=== PATIENT | female | born 1965 | race Caucasian/White ===

== ENCOUNTER 2017-08-13 23:33 | Inpatient (IN) ==
[2017-08-13 23:52] LABS: Basophils % 0.1 % (0.1-2.0); Eosinophils # 0.1 K/mm3 (0.0-0.4); Hematocrit 43.2 % (37.0-47.0); Hemoglobin 13.9 g/dL (12.2-16.2); Lymphocytes # 1.2 K/mm3 (0.7-4.5); Lymphocytes % 13.2 K/mm3 (10-50); Mean Corpuscular HGB Conc 32.2 g/dL (31.8-35.4); Mean Corpuscular Hemoglobin 30.2 pg (27.0-31.2); Mean Corpuscular Volume 93.9 fl (81-99); Mean Platelet Volume 7.3 fl (7.4-10.4); Monocytes # 0.5 K/mm3 (0.1-1.0); Neutrophils # 7.3 K/mm3 (1.8-7.8); Neutrophils % 80.7 % (37.0-80.0); Platelet Count 196 K/mm3 (142-424); Red Cell Distribution Width 13.4 % (11.5-17.5); White Blood Count 9.1 K/mm3 (4.8-10.8)
[2017-08-14 00:10] LABS: Anion Gap 15.5 mEq/L (5-15); Blood Urea Nitrogen 12 mg/dL (7-18); Carbon Dioxide 25 mmol/L (21.0-32.0); Chloride 102 mmol/L (98-107); Glucose 107 mg/dL (74-106); Potassium 3.5 mmoL/L (3.5-5.1); Sodium 139 mmol/L (136-145)
--- NOTE | 2017-08-14 01:06 | Emergency Department Note ---
ED Disposition Clinical Impression: Chest pain Qualifiers: Chest pain type: precordial pain Qualified Code(s): R07.2 - Precordial pain Syncope Qualifiers: Syncope type: unspecified Qualified Code(s): R55 - Syncope and collapse Disposition: Admitted as Observation Condition on Discharge: Good Referrals: Nando Frank MD [Primary Care Provider] - - Critical Care Critical Care Time: No Attestation: On 08/13/17, the high probability of a clinically significant, sudden or life threatening deterioration of the following system(s) required my full and direct attention, intervention and personal management. The time I documented below is in addition to time spent performing reported procedures but includes the following listed in this critical care notation. Medical Decision Making - Medical Records Medical records reviewed: Yes: I reviewed the patient's medical records. - [place] Inquiry Pt receiving controlled substance: No Vital Signs: 08/13/17 23:34 Temperature 98 F Temperature Source Oral Pulse Rate [Right Radial] 79 Respiratory Rate 20 Blood Pressure [Right Arm] 117/61 Blood Pressure Mean [Right Arm] 79 02 Sat by Pulse Oximetry 100 Oxygen Delivery Method Nasal Cannula Oxygen Flow Rate (LPM) 2 - Lab Data Lab results reviewed: Yes: I reviewed the patient's lab results. Lab Results 08/13/17 23:49: WBC 9.1, RBC 4.60, Hgb 13.9, Hct 43.2, MCV 93.9, MCH 30.2, MCHC 32.2, RDW 13.4, Plt Count 196, MPV 7.3 L, Neut % (Auto) 80.7 H, Lymph % (Auto) 13.2, [place] % (Auto) 5.0, Eos % (Auto) 1.0, Baso % (Auto) 0.1, Neut # (Auto) 7.3 , Lymph # (Auto) 1.2, [place] # (Auto) 0.5, Eos # (Auto) 0.1, Baso # (Auto) 0.0 08/13/17 23:49: Sodium 139, Potassium 3.5, Chloride 102, Carbon Dioxide 25, Anion Gap 15.5 H, BUN 12, Creatinine 0.96, Estimated Creat Clear 13, Estimated GFR 61, Est GFR ( Amer) 74, Glucose 107 H, Troponin I < 0.02 Result diagrams: 08/13/17 23:49 08/13/17 23:49 Orders (Tests/Meds): ORDERS Category Date Time Status CT cervical spine wo con Stat Cat Scan 08/13/17 23:[address] head/brain wo con Stat Cat Scan 08/13/17 23:41 Taken XR chest 2V Stat Exams 08/13/17 23:41 Taken 12-lead EKG Request [ECG Request by /Shemar] Stat Y 08/13/17 23:41 Ordered - Radiology Data #1 Image(s): Chest Image Reviewed: Yes I reviewed the patient's radiology image Preliminary Findings: Abnormal (nonspecific) - CT Data CT Scan: Head, C-Spine Time Received: 01:[address] Reviewed: Yes: I have viewed the radiologist's interpretation Preliminary Findings: No Fracture Seen - ECG Data Tracing #1 I reviewed this ECG and interpreted as documented below: Normal Sinus Rhythm: Yes Ischemic changes: non-specific ST-T wave changes - Physician Consults Physician Consulted: vilma Reason -: Admission Chest Pain HPI - General Chief Complaint: Chest Pain Stated Complaint: syncope Time Seen by Provider: 08/14/17 01:03 Mode of Arrival: EMS Source of Information: Patient, Spouse, EMS, Medical Record Limitations: No Limitations Description of Symptoms (Recalled from ER Triage Doc. by RN): syncopal episode at home. pt states she had some heart burn earlier this morning. pt states that tonight she was headed to the restroom and she passed out. pt has left head pain and slight chest heaviness. pt states she has had approx 4 beers tonight. - History of Present Illness HPI narrative: pt with new onset of pain this am which lasted about 3 hrs and then restarted this pm with acute syncopal episode this pm and brought by ems with partial relief with ntg complaint: chest pain indicative of cardiac Onset (ago): hour(s) Duration: intermittent Activity at onset: during rest Pain location: substernal Severity: moderate Quality: aching Pain radiation: none Relieving factors: nitroglycerin Risk Factors for CAD: Hypertension, Family Hx of CAD, Smoking Treatments prior to or on arrival for Cardiac Chest Pain: aspirin, nitroglycerin - DAMION Score Non-Stemi Age of patient: Less than 65 yrs Number of risk factors for CAD: Presence of 3 or more Prior coronary artery stenosis(seen in coronary angiography): Less than 50% ST-Segment deviation on ECG (more than 1 min): Absent Prior aspirin intake: No ASA in the last 7 days Severe anginal chest pain: Two or more episodes in last 24 hours Elevated cardiac markers(CK-MB or troponin): Absent Non-Stemi Risk Score: 2 - Related Data On Oral Contraceptives: No Home Medications Medication Instructions Recorded Confirmed Cetirizine HCl/Pseudoephedrine 1 each PO DAILY 08/13/17 08/13/17 [Zyrtec-D Tablet] Venlafaxine HCl [Effexor XR 75mg 225 mg PO DAILY 08/13/17 08/13/17 capsule] Allergies Allergy/AdvReac Type Severity Reaction Status Date / Time No Known Allergies Allergy Verified 08/13/17 23:40 [facility] History I have reviewed the patient's past medical history: Yes Medical History: Denies:: Cancer, Diabetes Mellitus Type 1, Diabetes Mellitus Type 2, MRSA Amputation: No Fractures: No - Social History Smoking Status: Current every day smoker Alcohol Intake: current Alcohol Intake Frequency:: a few times a week Substance Use Type: marijuana 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 Denies: abdominal pain, black, tarry stools - Genitourinary Female Genitourinary: Denies hematuria - Musculoskeletal Musculoskeletal: Denies joint pain, Denies joint swelling - Integumentary/Breasts Skin/Breast: Denies rash - Neurologic Neurologic: Denies headache(s), Denies seizure-like activity Physical Exam - General General appearance: in no apparent distress - Head Head exam: normocephalic - Eye Eye exam: Present: PERRL, EOMI - ENT ENT exam: Present: mucous membranes moist - Respiratory Respiratory exam: Present: normal lung sounds bilaterally. Absent: respiratory distress - Cardiovascular Cardiovascular exam: Present: regular rate, systolic murmur. Absent: rubs, gallop - Abdominal Exam Abdominal exam: Present: soft. Absent: tenderness - Extremities Exam Extremities exam: Absent: calf tenderness - Neurological Exam Neurological exam: Present: alert, oriented X3, CN II-XII intact - Psychiatric Psychiatric exam: Present: normal affect - Skin Skin exam: Absent: rash
[2017-08-14 07:58] LABS: Basophils % 0.1 % (0.1-2.0); Eosinophils % 0.3 % (0.1-12.0); Hemoglobin 13.6 g/dL (12.2-16.2); Lymphocytes # 0.9 K/mm3 (0.7-4.5); Lymphocytes % 9.7 K/mm3 (10-50); Mean Corpuscular HGB Conc 32.4 g/dL (31.8-35.4); Mean Corpuscular Hemoglobin 30.7 pg (27.0-31.2); Mean Platelet Volume 7.7 fl (7.4-10.4); Monocytes # 0.6 K/mm3 (0.1-1.0); Monocytes % 6.2 % (1.7-9.3); Neutrophils # 7.5 K/mm3 (1.8-7.8); Neutrophils % 83.6 % (37.0-80.0); Platelet Count 195 K/mm3 (142-424); Red Blood Count 4.42 M/mm3 (4.20-5.40); Red Cell Distribution Width 13.3 % (11.5-17.5)
[2017-08-14 08:08] LABS: Anion Gap 11.9 mEq/L (5-15); Blood Urea Nitrogen 11 mg/dL (7-18); Carbon Dioxide 26 mmol/L (21.0-32.0); Chloride 107 mmol/L (98-107); Chol/HDL Ratio 3.3 (1-3.5); Cholesterol 163 mg/dL (140-200); Glucose 119 mg/dL (74-106); HDL Cholesterol 49 mg/dL (29-89); LDL Cholesterol 104 mg/dL (0-130); Potassium 3.9 mmoL/L (3.5-5.1); Sodium 141 mmol/L (136-145); Triglycerides 50 mg/dL (30-200); VLDL Cholesterol 10 mg/dL (0-40)
--- NOTE | 2017-08-14 08:22 | Pharmacy Consult Notes ---
[facility] Pharmacy VTE Monitoring - Patient Demographics Admission date: 08/14/17 Report Date: 08/14/17 Time: 08:22 Allergies/Adverse Reactions: Patient Allergies No Known Allergies Allergy (Verified 08/14/17 01:53) Height: 1.65 m Weight: 88.224 kg Patient Problems: Current Active Problems Chest pain (Acute) Syncope (Acute) - VTE Risk Labs: VTE Related Lab Results Hgb 13.6 g/dL (12.2-16.2) 08/14/17 06:15 Hct 42.0 % (37.0-47.0) 08/14/17 06:15 Plt Count 195 K/mm3 (142-424) 08/14/17 06:15 BUN 11 mg/dL (7-18) 08/14/17 06:15 Creatinine 0.87 mg/dL (0.55-1.02) 08/14/17 06:15 Estimated Creat Clear 105 mL/min (0-300) 08/14/17 06:15 Was VTE Risk Assessment Performed: Yes VTE Score: 1 VTE Risk Level: Very Low Risk - Prophylaxis VTE Prophylaxis Ordered?: Yes Types of VTE Prophylaxis: TEDS Knee High Location of Applied Device: Bilateral Lower Extremeties - VTE Diagnosis Confirmed Treatment or plan recommended: Continue Current Treatment
--- NOTE | 2017-08-14 09:30 | History & Physical Report ---
*Admission Date: 08/14/17 *Chief complaint: Passed out/chest pain *History of present illness: 51 year old female presented to [facility] ER last night after falling at home and hitting her head and left side of her face. Patient states she had some chest pain yesterday morning and took and antacid thinking it may have been due to indigestion. She had several other episodes of pain throughout the day yesterday that were brief in nature and not related to exertion. She states she was laying on her couch watching TV last night and got up to use the restroom and after walking a few feet she passed out and fell to the ground. Her heard her fall and helped her up as she states he told her she was only out for a few seconds. Patient reports no similar previous episodes. She does smoke and has hyperlipidemia and states she had drank four beers last night prior to falling. [facility] History Medical History: Reports:: Anxiety, Hyperlipidemia Denies:: Cancer, Diabetes Mellitus Type 1, Diabetes Mellitus Type 2, MRSA Other Medical History: Reports: Other (allergic rhinitis) Other Surgeries: Yes: Tubal Ligation, Other (vulvectomy, several skin cancer surgeries) Amputation: No Fractures: No - *Social History Educational Level: Completed College Smoking Status: Current every day smoker Tobacco Type: cigarettes # Packs/Day (cigarettes): 1 Alcohol Intake: current Alcohol Intake Frequency:: a few times a week Substance Use Type: marijuana Last Used Substance: just [employer] Occupational Status: employed Housing: house Household Members: spouse - Psychiatric History Expresses thoughts of harming self/others: None Suicide Plan Description: No Plan *Family Hx:: Cancer, Diabetes, Heart Attack Review of Systems - Constitutional Denies chills, Denies fever(s) - Eyes Denies blurry vision - ENT Denies difficulty swallowing - *Cardiovascular Reports chest pain - *Respiratory Denies cough - *Gastrointestinal Denies abdominal pain - *Genitourinary Denies painful urination - *Musculoskeletal Denies joint pain - Integumentary/Breasts Denies rash - *Neurologic Denies dizziness, Denies headache(s) - Hematologic/Lymphatic Denies easy bruising Meds Home Medications Medication Instructions Recorded Confirmed Type Cetirizine HCl/Pseudoephedrine 1 each PO DAILY 08/13/17 08/14/17 History [Zyrtec-D Tablet] Venlafaxine HCl [Effexor XR 75mg 225 mg PO DAILY 08/13/17 08/14/17 History capsule] Rosuvastatin Calcium 5 mg PO DAILY 08/14/17 08/14/17 History Allergies Allergy/AdvReac Type Severity Reaction Status Date / Time No Known Allergies Allergy Verified 08/14/17 01:53 Exam Vital signs and Labs for Last 24 Hours: Temp Pulse Resp BP Pulse Ox 99.1 F 70 18 103/56 91 L 08/14/17 07:22 08/14/17 07:22 08/14/17 07:22 08/14/17 07:22 08/14/17 07:22 Laboratory Results - last 24 hr 08/13/17 23:49: WBC 9.1, RBC 4.60, Hgb 13.9, Hct 43.2, MCV 93.9, MCH 30.2, MCHC 32.2, RDW 13.4, Plt Count 196, MPV 7.3 L, Neut % (Auto) 80.7 H, Lymph % (Auto) 13.2, [place] % (Auto) 5.0, Eos % (Auto) 1.0, Baso % (Auto) 0.1, Neut # (Auto) 7.3 , Lymph # (Auto) 1.2, [place] # (Auto) 0.5, Eos # (Auto) 0.1, Baso # (Auto) 0.0 08/13/17 23:49: Sodium 139, Potassium 3.5, Chloride 102, Carbon Dioxide 25, Anion Gap 15.5 H, BUN 12, Creatinine 0.96, Estimated Creat Clear 13, Estimated GFR 61, Est GFR ( Amer) 74, Glucose 107 H, Troponin I < 0.02 08/14/17 01:50: Troponin I < 0.02 08/14/17 04:30: Troponin I < 0.02 08/14/17 06:15: WBC 9.0, RBC 4.42, Hgb 13.6, Hct 42.0, MCV 95.0, MCH 30.7, MCHC 32.4, RDW 13.3, Plt Count 195, MPV 7.7, Neut % (Auto) 83.6 H, Lymph % (Auto) 9.7 L, [place] % (Auto) 6.2, Eos % (Auto) 0.3, Baso % (Auto) 0.1, Neut # (Auto) 7.5 , Lymph # (Auto) 0.9, [place] # (Auto) 0.6, Eos # (Auto) 0.0, Baso # (Auto) 0.0 08/14/17 06:15: Sodium 141, Potassium 3.9, Chloride 107, Carbon Dioxide 26, Anion Gap 11.9, BUN 11, Creatinine 0.87, Estimated Creat Clear 105, Estimated GFR 68, Est GFR ( Amer) 83, Glucose 119 H, Magnesium 1.7, Troponin I < 0.02, Triglycerides 50, Cholesterol 163, LDL Cholesterol 104, VLDL Cholesterol 10, HDL Cholesterol 49, Cholesterol/HDL Ratio 3.3 I & O for Last 24 hours: Intake & Output 08/11/17 08/12/17 08/13/17 08/14/17 11:59 11:59 11:59 11:59 Intake Total 97 / 97 Output Total 400 / 400 Balance -303 / -303 Weight 194 lb 8 oz - Constitutional no acute distress - *Routine HEENT Exam Eye: Present: PERRL ENT: Present: mucous membranes moist - *Routine Neck Exam Present: supple, full ROM - *Routine Respiratory Exam Present: CTA bilaterally - *Routine Cardiovascular Exam Present: RRR - *Routine Abdominal Exam Present: soft, normoactive bowel sounds. Absent: tenderness - *Routine Extremities Exam Absent: cyanosis, clubbing, edema - *Routine Skin Exam Absent: rash - *Routine Neurological Exam Present: alert, oriented X3, CN II-XII intact, sensory deficit, motor deficit H&P: Result - Labs Labs: Short CBC 08/13/17 08/14/17 Range/Units 23:49 06:15 WBC 9.1 9.0 (4.8-10.8) K/mm3 Hgb 13.9 13.6 (12.2-16.2) g/dL Hct 43.2 42.0 (37.0-47.0) % Plt Count 196 195 (142-424) K/mm3 [place] 08/13/17 08/14/17 23:49 06:15 Sodium 139 141 Potassium 3.5 3.9 Chloride 102 107 Carbon Dioxide 25 26 BUN 12 11 Creatinine 0.96 0.87 Glucose 107 H 119 H Cardiac Enzymes 08/13/17 08/14/17 08/14/17 Range/Units 23:49 01:50 04:30 Troponin I < 0.02 < 0.02 < 0.02 (0.00-0.06) ng/ml 08/14/17 Range/Units 06:15 Troponin I < 0.02 (0.00-0.06) ng/ml - Impressions CT head, C-spine and CXR reports all reviewed, no acute pathology noted. Assessment and Plan (1) Anxiety Current visit: Yes Status: Acute Category: Medical Code(s): F41.9 - Anxiety disorder, unspecified (2) Hyperlipidemia Current visit: Yes Status: Acute Category: Medical Code(s): E78.5 - Hyperlipidemia, unspecified (3) Tobacco use Current visit: Yes Status: Acute Category: Social Hx Code(s): Z72.0 - Tobacco use (4) Chest pain Current visit: Yes Status: Acute Qualifiers: Chest pain type: precordial pain Qualified Code(s): R07.2 - Precordial pain Category: Medical Code(s): R07.9 - Chest pain, unspecified (5) Syncope Current visit: Yes Status: Acute Qualifiers: Syncope type: unspecified Qualified Code(s): R55 - Syncope and collapse Category: Medical Code(s): R55 - Syncope and collapse - Assessment and plan all Dx Assessment and Plan for all problems:: Patient admitted for further evaluation of chest pain and syncope, cardiology consulted.
--- NOTE | 2017-08-15 05:17 | Progress Note ---
Internal Medicine - PN: Subj *Date: 08/15/17 *Time: 06:21 Interval history: Patient had left heart cath yesterday which showed non obstructive coronary disease. She went into a. fib overnight and received a dose of oral Cardizem. Exam Vital signs and Labs for Last 24 Hours: Temp Pulse Resp BP Pulse Ox 97.9 F 85 20 98/60 93 L 08/15/17 04:00 08/15/17 04:00 08/15/17 04:00 08/15/17 04:00 08/15/17 04:00 Laboratory Results - last 24 hr 08/14/17 06:15: WBC 9.0, RBC 4.42, Hgb 13.6, Hct 42.0, MCV 95.0, MCH 30.7, MCHC 32.4, RDW 13.3, Plt Count 195, MPV 7.7, Neut % (Auto) 83.6 H, Lymph % (Auto) 9.7 L, [place] % (Auto) 6.2, Eos % (Auto) 0.3, Baso % (Auto) 0.1, Neut # (Auto) 7.5 , Lymph # (Auto) 0.9, [place] # (Auto) 0.6, Eos # (Auto) 0.0, Baso # (Auto) 0.0 08/14/17 06:15: Sodium 141, Potassium 3.9, Chloride 107, Carbon Dioxide 26, Anion Gap 11.9, BUN 11, Creatinine 0.87, Estimated Creat Clear 105, Estimated GFR 68, Est GFR ( Amer) 83, Glucose 119 H, Magnesium 1.7, Troponin I < 0.02, Triglycerides 50, Cholesterol 163, LDL Cholesterol 104, VLDL Cholesterol 10, HDL Cholesterol 49, Cholesterol/HDL Ratio 3.3 08/14/17 22:30: POC Glucose 92 Vital Signs Temp Pulse Pulse Pulse Resp BP BP 08/15/17 04:00 97.9 F 80 85 20 98/60 08/15/17 02:07 89 08/15/17 00:00 98.1 F 110 H 71 18 115/58 08/14/17 21:33 140 H 08/14/17 21:08 127 H 08/14/17 20:00 90 08/14/17 19:39 98.4 F 69 18 119/60 05/27/18 18:45 63 20 97/63 05/27/18 17:45 63 20 114/66 08/14/17 16:45 69 20 106/70 08/14/17 16:00 60 08/14/17 15:45 69 20 102/63 08/14/17 14:45 65 20 116/65 08/14/17 14:15 78 20 110/63 08/14/17 13:45 68 20 118/73 08/14/17 13:15 73 20 102/62 08/14/17 12:45 67 20 100/65 08/14/17 12:30 93 H 20 94/58 08/14/17 12:15 98.7 F 66 20 110/61 08/14/17 12:00 90 63 16 103/56 08/14/17 11:45 69 16 99/56 08/14/17 11:40 76 16 99/59 08/14/17 11:38 75 76 16 100/60 08/14/17 11:35 75 16 99/53 08/14/17 11:30 76 16 100/60 08/14/17 08:00 80 08/14/17 07:22 99.1 F 70 18 103/56 Pulse Ox 08/15/17 04:00 93 L 08/15/17 02:07 08/15/17 00:00 94 L 08/14/17 21:33 08/14/17 21:08 08/14/17 20:00 08/14/17 19:39 96 08/14/17 18:45 98 08/14/17 17:45 94 L 08/14/17 16:45 97 08/14/17 16:00 08/14/17 15:45 92 L 08/14/17 14:45 97 08/14/17 14:15 92 L 08/14/17 13:45 95 08/14/17 13:15 97 08/14/17 12:45 94 L 08/14/17 12:30 93 L 08/14/17 12:15 90 L 08/14/17 12:00 95 08/14/17 11:45 94 L 08/14/17 11:40 93 L 08/14/17 11:38 92 L 08/14/17 11:35 92 L 08/14/17 11:30 87 L 08/14/17 08:00 96 08/14/17 07:22 91 L Intake and Output 08/14/17 08/15/17 08/15/17 19:59 03:59 11:59 Intake Total 360 / 360 240 / 240 Output Total 600 / 600 600 / 600 Balance -240 / -240 -360 / -360 Intake: Intake, Oral Amount 360 / 360 240 / 240 Output: Output, Urine Amount 600 / 600 600 / 600 Output, Stool Amount 0 / 0 Other: Number of Voids 2 Weight 199 lb 1 oz Patient Weight 08/15/17 11:59 Weight 199 lb 1 oz I & O for Last 24 hours: Intake & Output 08/12/17 08/13/17 08/14/17 08/15/17 11:59 11:59 11:59 11:59 Intake Total 97 / 97 600 / 600 Output Total 400 / 400 1200 / 1200 Balance -303 / -303 -600 / -600 Weight 194 lb 8 oz 199 lb 1 oz - Constitutional no acute distress - *Routine HEENT Exam ENT: Present: mucous membranes moist - *Routine Respiratory Exam Present: CTA bilaterally - *Routine Cardiovascular Exam Present: irregularly irregular (HR 120 now) Assessment and Plan (1) A-fib Current visit: Yes Status: Acute Category: Medical Code(s): I48.91 - Unspecified atrial fibrillation (2) Anxiety Current visit: Yes Status: Acute Category: Medical Code(s): F41.9 - Anxiety disorder, unspecified (3) Hyperlipidemia Current visit: Yes Status: Acute Category: Medical Code(s): E78.5 - Hyperlipidemia, unspecified (4) Tobacco use Current visit: Yes Status: Acute Category: Social Hx Code(s): Z72.0 - Tobacco use (5) Chest pain Current visit: Yes Status: Acute Qualifiers: Chest pain type: precordial pain Qualified Code(s): R07.2 - Precordial pain Category: Medical Code(s): R07.9 - Chest pain, unspecified (6) Syncope Current visit: Yes Status: Acute Qualifiers: Syncope type: unspecified Qualified Code(s): R55 - Syncope and collapse Category: Medical Code(s): R55 - Syncope and collapse - Assessment and plan all Dx Assessment and Plan for all problems:: Will schedule Cardizem, will need to start Xarelto, continue inpatient care/ monitoring.
[2017-08-16 07:07] LABS: Basophils % 0.1 % (0.1-2.0); Eosinophils % 0.8 % (0.1-12.0); Hematocrit 47.4 % (37.0-47.0); Hemoglobin 14.9 g/dL (12.2-16.2); Lymphocytes # 1.1 K/mm3 (0.7-4.5); Lymphocytes % 25.3 K/mm3 (10-50); Mean Corpuscular HGB Conc 31.4 g/dL (31.8-35.4); Mean Corpuscular Hemoglobin 30.1 pg (27.0-31.2); Mean Corpuscular Volume 95.8 fl (81-99); Mean Platelet Volume 7.8 fl (7.4-10.4); Monocytes # 0.3 K/mm3 (0.1-1.0); Monocytes % 5.5 % (1.7-9.3); Neutrophils # 3.1 K/mm3 (1.8-7.8); Neutrophils % 68.4 % (37.0-80.0); Platelet Count 197 K/mm3 (142-424); Red Blood Count 4.95 M/mm3 (4.20-5.40); Red Cell Distribution Width 13.3 % (11.5-17.5); White Blood Count 4.5 K/mm3 (4.8-10.8)
[2017-08-16 07:21] LABS: Anion Gap 10.6 mEq/L (5-15); Potassium 3.6 mmoL/L (3.5-5.1)
--- NOTE | 2017-08-16 07:37 | Carotid Imaging Report ---
"Cerebrovascular Exam Indications: 780.2 Syncope and collapse. IMPRESSIONS 1. The bilateral vertebral arteries are patent with normal antegrade flow. 2. Study suggests less than 20% stenosis involving the right internal carotid artery and the left internal carotid artery. History: Risk factors: Current tobacco use. Hypertension. Carotid duplex study. Complete study and Doppler flow study including spectral analysis, color and vazquez scale imaging. Location: Bedside. Patient status: Inpatient. Tables: Arterial flow: + +--------+--------+ |Location |V sys |V ed | + +--------+--------+ |Right CCA - proximal|77.8cm/s|28.3cm/s| + +--------+--------+ |Right CCA - distal |82.5cm/s|33.8cm/s| + +--------+--------+ |Right ECA |91.9cm/s|--------| + +--------+--------+ |Right ICA - proximal|62.1cm/s|24.4cm/s| + +--------+--------+ |Right ICA - mid |76.2cm/s|30.6cm/s| + +--------+--------+ |Right ICA - distal |68.4cm/s|33cm/s | + +--------+--------+ |Right vertebral |63.6cm/s|--------| + +--------+--------+ |Left CCA - proximal |84.1cm/s|24.4cm/s| + +--------+--------+ |Left CCA - distal |74.6cm/s|31.4cm/s| + +--------+--------+ |Left ECA |91.1cm/s|--------| + +--------+--------+ |Left ICA - proximal |82.5cm/s|29.9cm/s| + +--------+--------+ |Left ICA - mid |69.9cm/s|29.9cm/s| + +--------+--------+ |Left ICA - distal |62.9cm/s|22cm/s | + +--------+--------+ |Left vertebral |60.5cm/s|--------| + +--------+--------+ Velocity ratios: + + + + + + | |Right, V sys|Right, V ed|Left, V sys|Left, V ed| + + + + + + |Max ICA/dist CCA|0.92 |0.98 |1.11 |0.95 | + + + + + + (Report amended ) Electronically signed by: Gustavo Joy [id number]"
--- NOTE | 2017-08-16 07:53 | Progress Note ---
Subjective Date: 08/16/17 Time: 07:50 Principal diagnosis: A. fib, CAD, syncope Interval history: 51 yo WF in bed in NAD. Telemetry shows NSR with paroxysmal A. fib with variable rate. Taking diltiazem 180 mg daily but BP is around 100 mm Hg systolic. No further episodes of syncope and this was the only episode she has ever had without something causing it (sight of blood, discussing something "gross" or related to drinking too much). Exam Vital signs and Labs for Last 24 Hours: Temp Pulse Resp BP Pulse Ox 98.2 F 118 H 20 105/74 97 08/16/17 07:49 08/16/17 07:49 08/16/17 07:49 08/16/17 07:49 08/16/17 07:49 Laboratory Results - last 24 hr 08/16/17 06:14: WBC 4.5 L D, RBC 4.95, Hgb 14.9, Hct 47.4 H, MCV 95.8, MCH 30.1 , MCHC 31.4 L, RDW 13.3, Plt Count 197, MPV 7.8, Neut % (Auto) 68.4, Lymph % ( Auto) 25.3, [place] % (Auto) 5.5, Eos % (Auto) 0.8, Baso % (Auto) 0.1, Neut # (Auto ) 3.1, Lymph # (Auto) 1.1, [place] # (Auto) 0.3, Eos # (Auto) 0.0, Baso # (Auto) 0.0 08/16/17 06:14: Sodium 144, Potassium 3.6, Chloride 108 H, Carbon Dioxide 29, Anion Gap 10.6, BUN 10, Creatinine 0.82, Estimated Creat Clear 112, Estimated GFR 73, Est GFR ( Amer) 89, Glucose 93, TSH 3.00 I & O for Last 24 hours: Intake & Output 08/13/17 08/14/17 08/15/17 08/16/17 11:59 11:59 11:59 11:59 Intake Total 97 / 97 600 / 600 1400 / 1400 Output Total 400 / 400 1600 / 1600 1200 / 1200 Balance -303 / -303 -1000 / -1000 200 / 200 Weight 194 lb 8 oz 195 lb 1 oz - *Routine Respiratory Exam Present: decreased breath sounds, wheezes - *Routine Cardiovascular Exam Present: irregular rhythm - *Routine Extremities Exam Absent: edema - *Routine Neurological Exam Present: alert, oriented X3, moving all extremities Progress Note: A&P (1) A-fib Status: Acute (2) Anxiety Status: Acute (3) Hyperlipidemia Status: Acute (4) Tobacco use Status: Acute (5) Chest pain Status: Acute (6) Syncope Status: Acute Assessment and Plan for All Diagnoses:: No etiology for syncope identified. CAD, medical management unless refractory angina. Newly diagnosed PAF, currently on cardizem and Xarelto. Will add digoxin and get echo. Pt could go home later today. Consider loop recorder implantation for monitoring of A. fib when she comes to follow up.
--- NOTE | 2017-08-16 08:11 | Progress Note ---
<Irene Walker - Last Filed: 08/16/17 08:12> Internal Medicine - PN: Subj *Date: 08/16/17 *Time: 08:12 Interval history: Denies chest pain and shortness of breath. Has ambulated to the bathroom. Denies dizziness. Eating without problems. Patient remains in atrial fib with varying ventricular ventricular response up to 150. Blood pressure remains low. TSH is normal. CT of the chest negative for PE. Carotid ultrasound was also negative. Exam Vital signs and Labs for Last 24 Hours: Temp Pulse Resp BP Pulse Ox 98.2 F 118 H 20 105/74 97 08/16/17 07:49 08/16/17 07:49 08/16/17 07:49 08/16/17 07:49 08/16/17 07:49 Laboratory Results - last 24 hr 08/16/17 06:14: WBC 4.5 L D, RBC 4.95, Hgb 14.9, Hct 47.4 H, MCV 95.8, MCH 30.1 , MCHC 31.4 L, RDW 13.3, Plt Count 197, MPV 7.8, Neut % (Auto) 68.4, Lymph % ( Auto) 25.3, [place] % (Auto) 5.5, Eos % (Auto) 0.8, Baso % (Auto) 0.1, Neut # (Auto ) 3.1, Lymph # (Auto) 1.1, [place] # (Auto) 0.3, Eos # (Auto) 0.0, Baso # (Auto) 0.0 08/16/17 06:14: Sodium 144, Potassium 3.6, Chloride 108 H, Carbon Dioxide 29, Anion Gap 10.6, BUN 10, Creatinine 0.82, Estimated Creat Clear 112, Estimated GFR 73, Est GFR ( Amer) 89, Glucose 93, TSH 3.00 I & O for Last 24 hours: Intake & Output 08/13/17 08/14/17 08/15/17 08/16/17 11:59 11:59 11:59 11:59 Intake Total 97 / 97 600 / 600 1400 / 1400 Output Total 400 / 400 1600 / 1600 1200 / 1200 Balance -303 / -303 -1000 / -1000 200 / 200 Weight 194 lb 8 oz 195 lb 1 oz - Constitutional no acute distress - *Routine Respiratory Exam Present: CTA bilaterally (Anteriorly and posteriorly) - *Routine Cardiovascular Exam Present: irregular rhythm (Monitor currently showing atrial fibrillation with ventricular rate 120-150.) - *Routine Abdominal Exam Present: soft, normoactive bowel sounds. Absent: tenderness - *Routine Extremities Exam Absent: edema, calf tenderness - *Routine Neurological Exam Present: alert, oriented X3 Assessment and Plan (1) A-fib Current visit: Yes Status: Acute Category: Medical Code(s): I48.91 - Unspecified atrial fibrillation (2) Anxiety Current visit: Yes Status: Acute Category: Medical Code(s): F41.9 - Anxiety disorder, unspecified (3) Hyperlipidemia Current visit: Yes Status: Acute Category: Medical Code(s): E78.5 - Hyperlipidemia, unspecified (4) Tobacco use Current visit: Yes Status: Acute Category: Social Hx Code(s): Z72.0 - Tobacco use (5) Chest pain Current visit: Yes Status: Acute Qualifiers: Chest pain type: precordial pain Qualified Code(s): R07.2 - Precordial pain Category: Medical Code(s): R07.9 - Chest pain, unspecified (6) Syncope Current visit: Yes Status: Acute Qualifiers: Syncope type: unspecified Qualified Code(s): R55 - Syncope and collapse Category: Medical Code(s): R55 - Syncope and collapse - Assessment and plan all Dx Assessment and Plan for all problems:: Has been seen by cardiology and will have an echo today. Also will add digoxin to the p.o. Cardizem. <Ronald Sparks - Last Filed: 08/16/17 18:36> Internal Medicine - PN: Subj *Date: 08/16/17 *Time: 18:34 Exam Vital signs and Labs for Last 24 Hours: Temp Pulse Resp BP Pulse Ox 98.4 F 71 20 96/58 97 08/16/17 15:37 08/16/17 15:37 08/16/17 15:37 08/16/17 15:37 08/16/17 15:37 Laboratory Results - last 24 hr 08/16/17 06:14: WBC 4.5 L D, RBC 4.95, Hgb 14.9, Hct 47.4 H, MCV 95.8, MCH 30.1 , MCHC 31.4 L, RDW 13.3, Plt Count 197, MPV 7.8, Neut % (Auto) 68.4, Lymph % ( Auto) 25.3, [place] % (Auto) 5.5, Eos % (Auto) 0.8, Baso % (Auto) 0.1, Neut # (Auto ) 3.1, Lymph # (Auto) 1.1, [place] # (Auto) 0.3, Eos # (Auto) 0.0, Baso # (Auto) 0.0 08/16/17 06:14: Sodium 144, Potassium 3.6, Chloride 108 H, Carbon Dioxide 29, Anion Gap 10.6, BUN 10, Creatinine 0.82, Estimated Creat Clear 112, Estimated GFR 73, Est GFR ( Amer) 89, Glucose 93, TSH 3.00 I & O for Last 24 hours: Intake & Output 08/14/17 08/15/17 08/16/17 08/17/17 11:59 11:59 11:59 11:59 Intake Total 97 / 97 600 / 600 1400 / 1400 1440 / 1440 Output Total 400 / 400 1600 / 1600 1200 / 1200 Balance -303 / -303 -1000 / -1000 200 / 200 1440 / 1440 Weight 194 lb 8 oz 195 lb 1 oz Assessment and Plan (1) A-fib Current visit: Yes Status: Acute Category: Medical Code(s): I48.91 - Unspecified atrial fibrillation (2) Anxiety Current visit: Yes Status: Acute Category: Medical Code(s): F41.9 - Anxiety disorder, unspecified (3) Hyperlipidemia Current visit: Yes Status: Acute Category: Medical Code(s): E78.5 - Hyperlipidemia, unspecified (4) Tobacco use Current visit: Yes Status: Acute Category: Social Hx Code(s): Z72.0 - Tobacco use (5) Chest pain Current visit: Yes Status: Acute Qualifiers: Chest pain type: precordial pain Qualified Code(s): R07.2 - Precordial pain Category: Medical Code(s): R07.9 - Chest pain, unspecified (6) Syncope Current visit: Yes Status: Acute Qualifiers: Syncope type: unspecified Qualified Code(s): R55 - Syncope and collapse Category: Medical Code(s): R55 - Syncope and collapse - Assessment and plan all Dx Assessment and Plan for all problems:: Patient seen and examined this AM. Still having intermitent palpitations. No chest pain or syncope. Discussed with cardiology. Plan is to load with Digoxin and likely discharge home later today.
--- NOTE | 2017-08-16 21:56 | Discharge Summary ---
General - General Admission date:: 08/14/17 Discharge date: 08/16/17 HPI HPI: 51 year old female presented to [facility] ER last night after falling at home and hitting her head and left side of her face. Patient states she had some chest pain yesterday morning and took an antacid thinking it may have been due to indigestion. She had several other episodes of pain throughout the day yesterday that were brief in nature and not related to exertion. She states she was laying on her couch watching TV last night and got up to use the restroom and after walking a few feet she passed out and fell to the ground. Her heard her fall and helped her up as she states he told her she was only out for a few seconds. Patient reports no similar previous episodes. She does smoke and has hyperlipidemia and states she had drank four beers last night prior to falling. Hospital Course Hospital Course: The patient had a CT of the head, C-spine and a CXR and all showed no acute pathology. She was admitted for further evaluation of chest pain and syncope, Cardiology was consulted. The patient had a left heart cath which showed non obstructive coronary disease. She then went into a. fib and received a dose of oral Cardizem. Cardizem was scheduled and she was started on Xarelto. Digoxin was started as well. An echo was ordered. The patient remained in atrial fib with varying ventricular ventricular response up to 150. Her TSH was normal. She had a CT of the chest that was negative for PE. Carotid ultrasound was also negative. The patient was loaded with Digoxin and was stable to be discharged home with a cardiology f/u. Objective Vital signs: Temp Pulse Resp BP Pulse Ox 98.5 F 81 18 104/62 91 L 08/16/17 19:24 08/16/17 19:24 08/16/17 19:24 08/16/17 19:24 08/16/17 19:24 Narrative: - Constitutional no acute distress - *Routine HEENT Exam Eye: Present: PERRL ENT: Present: mucous membranes moist - *Routine Neck Exam Present: supple, full ROM - *Routine Respiratory Exam Present: CTA bilaterally - *Routine Cardiovascular Exam Present: RRR - *Routine Abdominal Exam Present: soft, normoactive bowel sounds. Absent: tenderness - *Routine Extremities Exam Absent: cyanosis, clubbing, edema - *Routine Skin Exam Absent: rash - *Routine Neurological Exam Present: alert, oriented X3, CN II-XII intact, sensory deficit, motor deficit Results Labs on day of discharge: Labs from last 24 hours 08/16/17 08/16/17 06:14 06:14 WBC 4.5 L D RBC 4.95 Hgb 14.9 Hct 47.4 H MCV 95.8 MCH 30.1 MCHC 31.4 L RDW 13.3 Plt Count 197 MPV 7.8 Neut % (Auto) 68.4 Lymph % (Auto) 25.3 [place] % (Auto) 5.5 Eos % (Auto) 0.8 Baso % (Auto) 0.1 Neut # (Auto) 3.1 Lymph # (Auto) 1.1 [place] # (Auto) 0.3 Eos # (Auto) 0.0 Baso # (Auto) 0.0 Sodium 144 Potassium 3.6 Chloride 108 H Carbon Dioxide 29 Anion Gap 10.6 BUN 10 Creatinine 0.82 Estimated Creat Clear 112 Estimated GFR 73 Est GFR ( Amer) 89 Glucose 93 TSH 3.00 DS: Diagnosis - Discharge Diagnosis (1) A-fib Status: Acute (2) Anxiety Status: Acute (3) Hyperlipidemia Status: Acute (4) Tobacco use Status: Acute (5) Chest pain Status: Acute (6) Syncope Status: Acute Discharge Plan - Patient Discharge Instructions ACTIVITY: Continue current activity DIET: continue same diet Patient Instructions: Atrial Fibrillation, DI for Chest Pain - Follow up Plan Follow up with: Nando Frank MD [Primary Care Provider] - 1 week Meet Guerra MD [Staff Physician] - 1 week Disposition: Home, Self-Jail Medications: Home Medications Medication Instructions Recorded Confirmed Type Venlafaxine HCl [Effexor XR 75mg 225 mg PO DAILY 08/13/17 08/14/17 History capsule] Rosuvastatin Calcium 5 mg PO DAILY 08/14/17 08/14/17 History Prescriptions/Medication Reconciliation: New Digoxin [Digoxin 0.125mg Tablet] 125 mcg PO DAILY #30 tab dilTIAZem HCl [Cardizem 180mg ER capsule] 180 mg PO DAILY #30 cap.er.24h Rivaroxaban [Xarelto 10mg tablet] 20 mg PO QPMWM #30 tab Continue Venlafaxine HCl [Effexor XR 75mg capsule] 225 mg PO DAILY Rosuvastatin Calcium 5 mg PO DAILY Discontinued Cetirizine HCl/Pseudoephedrine [Zyrtec-D Tablet] 1 each PO DAILY
== END 2017-08-16 20:20 | disposition home or self-care (01) ==
LOC: ER 23:33 → 2ND 23:33 → OBSVTOIN 08-14 01:30 → 2ND 08-14 01:35
PROVIDERS: ADMIT Family Medicine; ATTEND Family Medicine

== ENCOUNTER → 2018-06-30 15:42 | Outpatient (CLI) | payer BC, SELFPAY | LOC: SL 15:45 | PROVIDERS: PCP Family Medicine; Visit Provider Internal Medicine Cardiovascular Disease | DX: R53.83 Other fatigue (principal) | CPT/HCPCS: G0399 ==

== ENCOUNTER → 2019-02-03 11:28 | Outpatient (CLI) | payer OTHER, SELFPAY ==
[2019-02-03 12:10] LABS: Basophils % 0.5 % (0.1-2.0); Eosinophils % 0.3 % (0.1-12.0); Hematocrit 49.2 % (37.0-47.0); Hemoglobin 16.2 g/dL (12.2-16.2); Lymphocytes # 1.3 K/mm3 (0.7-4.5); Lymphocytes % 21.5 % (10-50); Mean Corpuscular Hemoglobin 31.8 pg (27.0-31.2); Mean Corpuscular Volume 96.5 fl (81-99); Mean Platelet Volume 7.8 fl (7.4-10.4); Monocytes # 0.2 K/mm3 (0.1-1.0); Monocytes % 3.6 % (1.7-9.3); Neutrophils # 4.6 K/mm3 (1.8-7.8); Platelet Count 175 K/mm3 (142-424); Red Blood Count 5.09 M/mm3 (4.20-5.40); Red Cell Distribution Width 13.4 % (11.5-17.5); White Blood Count 6.2 K/mm3 (4.8-10.8)
[2019-02-03 15:58] LABS: Alanine Aminotransferase 26 U/L (12-78); Alkaline Phosphatase 103 U/L (46-116); Anion Gap 12.3 mEq/L (5-15); Aspartate Amino Transferase 24 U/L (15-37); Bilirubin,Direct 0.1 mg/dL (0.0-0.2); Bilirubin,Indirect 0.4 mg/dL (0.0-0.9); Bilirubin,Total 0.5 mg/dL (0.2-1.0); Blood Urea Nitrogen 11 mg/dL (7-18); Calcium 8.8 mg/dL (8.5-10.1); Carbon Dioxide 26 mmol/L (21.0-32.0); Chloride 107 mmol/L (98-107); Chol/HDL Ratio 2.7 (1-3.5); Cholesterol 157 mg/dL (140-200); Creatinine,Serum 0.82 mg/dL (0.55-1.02); Estimated Glomerular Filt Rate 73 ml/min (>60); GFR (African American) 88 ML/MIN (>60); Glucose 77 mg/dL (74-106); HDL Cholesterol 58 mg/dL (29-89); LDL Cholesterol 87 mg/dL (0-130); Potassium 4.3 mmoL/L (3.5-5.1); Sodium 141 mmol/L (136-145); Triglycerides 59 mg/dL (30-200); VLDL Cholesterol 12 mg/dL (0-40)
== END ==
LOC: LAB 11:28
PROVIDERS: Visit Provider Physician Assistant
DX: I11.9 Hypertensive heart disease without heart failure (principal); I25.10 Atherosclerotic heart disease of native coronary artery without angina pectoris; I48.0 Paroxysmal atrial fibrillation; E78.2 Mixed hyperlipidemia
CPT/HCPCS: 36415; 80048; 80061; 80076; 85025

== ENCOUNTER → 2020-11-20 14:21 | Outpatient (CLI) | payer BC, SELFPAY | LOC: RT 14:23 | PROVIDERS: PCP Family Medicine; Visit Provider Internal Medicine Cardiovascular Disease | DX: R06.09 Other forms of dyspnea (principal); R55 Syncope and collapse; I48.0 Paroxysmal atrial fibrillation | CPT/HCPCS: 93225 ==

== ENCOUNTER → 2020-11-27 11:34 | Day surgery (SDC) | payer BC, SELFPAY ==
[2020-11-27 12:00] VITALS: BMI 29.1
--- NOTE | 2020-11-27 12:18 | ECG_ITS ---
APPROVED REPORT Exam: Resting ECG HR:46 bpm ECG Measurements Heart Rate 46 AXES CA 152 P 54 QRSd 124 QRS -63 QT 512 T 59 QTc 448 Conclusion Marked sinus bradycardia Left axis deviation Right bundle branch block Anteroseptal infarct, age undetermined Abnormal ECG Electronically signed by : Cortes Hopkins MD 11/28/2020 10:54:21
--- NOTE | 2020-11-27 12:34 | CA_ITS ---
APPROVED REPORT EXAM: Comprehensive 2D, Doppler, and color-flow Echocardiogram [employer]: Rachel Amezquita RVT Ht: 5 ft 10 in Wt: 203lbs BSA: 2.10 BP: 121/79 mmHg Indications: A-FIB,CAD,BRADYCARDIA,NEAR SYNCOPE,SMOKER,PALPS,SCHNEIDER,HLD 2D Dimensions LVOT 1.93 cm (M/F) 1.5-2.5 LA Volume 53.60 mL LA Volume Index 25.52 mL/m2 (M/F) 16-34 M-Mode Dimensions RVDd 2.33 cm (0.9-2.6) LA Diam 4.62 cm (1.9-4.0) LVDd 5.07 cm (3.5-5.7) Ao Diam 2.80 cm (2.0-3.7) LVDs 2.94 cm (3.5-5.7) IVSd 0.76 cm (0.6-1.1) PWd 0.93 cm (0.6-1.1) EF (Teich) 72.70% FS 42.00% EDV (Teich) 122.10 mL TAPSE 2.40 (<1.7) ESV (Teich) 33.30 mL LV Diastology E Decel Time 173.00 (160-240 msec) E/A Ratio 1.9 MED E' 8.20 (< 7 cm/sec) E'/MED E' Ratio 11.89 (>14) LAT E' 7.30 (<10 cm/sec) E/LAT E' Ratio 13.36 (>14) Mitral Valve MV E Max Richard. 98.00 (40-130 cm/s) MV A Velocity 52.00 (40-130 cm/s) E/A Ratio 1.87 MV Decel. Time 173.00 (160-240 ms) MV PHT 51.00 ms Pulmonary Valve PV Peak Velocity 60.00 (50-150 cm/s) Tricuspid Valve TR P. Velocity 310.00 cm/s RAP Estimate 10.00 mmHg RVSP 48.50 mmHg Left Ventricle Left atrium is mildly enlarged, left ventricle is normal size, mild concentric left ventricular hypertrophy, visually estimated ejection fraction 55% with no regional wall motion abnormality. Grade 2 diastolic dysfunction seen without tissue Doppler evidence of raise left atrial pressure. Right Ventricle Right atrium and right ventricle are mildly enlarged with normal contractility. Aortic Valve Aortic valve is minimally thickened and fibrosed, there is no aortic stenosis or aortic insufficiency. Mitral Valve Mitral valve is grossly normal, there is mild mitral regurgitation. Tricuspid Valve Tricuspid valve grossly normal, there is mild tricuspid regurgitation, calculated right ventricular systolic pressure is 48 mmHg. Pulmonic Valve Pulmonic valve is poorly visualized. Great Vessels Aortic root is normal size. Inferior vena cava is mildly dilated with normal inspiratory collapse. Pericardium No significant pericardial effusion noted. Conclusion 1. Biatrial enlargement, normal left ventricular size, mild concentric left ventricular hypertrophy, visually estimated ejection fraction 55% with no regional wall motion abnormality, grade 2 diastolic dysfunction seen without tissue Doppler evidence of raise left atrial pressure. 2. Mildly enlarged right ventricle with normal contractility. 3. Mild mitral and tricuspid regurgitation, calculated right ventricular systolic pressure is 48 mmHg. 4. No significant pericardial effusion noted. 5. Inferior vena cava is mildly dilated without significant inspiratory collapse. Electronically signed by : Austyn Godwin MD 11/28/2020 12:30:09
--- NOTE | 2020-11-27 13:22 | P.PCN_ITS ---
[facility] [place] Cardioversion Date: 11/27/20 Provider:: DANAY Talamantes Procedure Performed:: Procedure cancel Diagnosis:: Atrial fibrillation, currently in sinus rhythm Procedure Summary:: Patient was brought to the [facility] with plans for cardioversion if needed for atrial fibrillation. Patient has spontaneously converted to sinus rhythm on her own so the cardioversion was canceled. Complications:: None Conculsion:: Patient in sinus rhythm. No cardioversion performed. Continue home medications.
== END ==
LOC: CATHLAB 11:37
PROVIDERS: PCP Family Medicine; Visit Provider Internal Medicine Cardiovascular Disease
DX: Z53.09 Procedure and treatment not carried out because of other contraindication (principal); I48.0 Paroxysmal atrial fibrillation; E78.2 Mixed hyperlipidemia; I25.10 Atherosclerotic heart disease of native coronary artery without angina pectoris
CPT/HCPCS: 93005; 93306

== ENCOUNTER → 2021-04-14 07:06 | Outpatient (CLI) | payer BC, SELFPAY ==
--- NOTE | 2021-04-14 07:10 | CT_ITS ---
FINAL REPORT TECHNIQUE: Axial images were obtained from the lung apex to the mid abdomen by computed tomography. Low-dose protocol was utilized. CLINICAL HISTORY: H/O NICOTINE DEPENDENCE current smoker 1ppd x 25+ years COMPARISON: 08/15/2017 FINDINGS: CHEST CT LOW DOSE CTDI vol (mGy): 2.90 DLP (mGy-cm): 94.29 There is no axillary adenopathy. There are a few mildly enlarged right paratracheal nodes. Individual nodes measure up to 1.6 cm. There is a calcified subcarinal lymph node. The heart is normal in size. There is no pericardial or pleural effusion. Lung window images demonstrate no suspicious infiltrate or nodule. There is a calcified granuloma at the right base. There are advanced changes of centrilobular emphysema. No suspicious mass or nodule is identified. Limited images of the upper abdomen are unremarkable. IMPRESSION: Borderline mediastinal adenopathy. Advanced centrilobular emphysema. Lung RADS category 1S. Recommend 12 month follow-up low-dose chest CT. Reviewed, Interpreted and Dictated by Nikunj River MD Transcribed by Irene Modi Authenticated by Nikunj River MD on 04/14/2021 09:50:14 AM [facility]
== END ==
PROVIDERS: PCP Family Medicine; Visit Provider Family Medicine
DX: Z87.891 Personal history of nicotine dependence (principal); Z12.2 Encounter for screening for malignant neoplasm of respiratory organs
CPT/HCPCS: 71271

== ENCOUNTER → 2021-04-30 11:13 | Outpatient (CLI) | payer BC, SELFPAY ==
--- NOTE | 2021-04-30 11:30 | XR_ITS ---
FINAL REPORT CLINICAL HISTORY: COVID OUTPATIENT soa COMPARISON: August 14, 2017 FINDINGS: The heart size is normal. The mediastinum is normal. There is mild scarring. There is no focal infiltrate or edema. There are no pleural effusions. There is no pneumothorax. There is no osseous abnormality. IMPRESSION: No acute cardiopulmonary process Reviewed, Interpreted and Dictated by Ha Murphy III, MD Transcribed by Asad Coles Authenticated by Ha Murphy III, MD on 04/30/2021 12:36:55 PM [facility]
[2021-04-30 23:32] LABS: Blood Urea Nitrogen 11 mg/dl (7-17); Calcium 8.9 mg/dl (8.4-10.2); Carbon Dioxide 27 mmol/L (22.0-30.0); Estimated Glomerular Filt Rate 65 ml/min (>60); GFR (African American) 78 ML/MIN (>60); Glucose 94 mg/dl (74-100); Potassium 4.2 mmoL/L (3.5-5.1); Sodium 142 mmol/L (136-145)
[2021-04-30 23:44] LABS: Anion Gap 12.2 mEq/L (5-15); Chloride 107 mmol/L (98-107)
[2021-05-01 13:11] LABS: Adenovirus,PCR Not Detected (NotDetected); Bordetella Pertussis Not Detected (NotDetected); Chlamydophila Pneumoniae, PCR Not Detected (NotDetected); Coronavirus 19, PCR Not Detected (NotDetected); Coronavirus 229E Not Detected (NotDetected); Coronavirus NL63 Not Detected (NotDetected); Coronavirus OC43 Not Detected (NotDetected); Coronovirus HKU1,PCR Not Detected (NotDetected); Human Metapneumovirus Not Detected (NotDetected); Influenza A, PCR Not Detected (NotDetected); Influenza AH1, 2009 Not Detected (NotDetected); Influenza AH1, PCR Not Detected (NotDetected); Influenza AH3,PCR Not Detected (NotDetected); Influenza B, PCR Not Detected (NotDetected); Mycoplasma Pneumoniae, PCR Not Detected (NotDetected); Parainfluenza 1, PCR Not Detected (NotDetected); Parainfluenza 2, PCR Not Detected (NotDetected); Parainfluenza 3, PCR Not Detected (NotDetected); Parainfluenza 4, PCR Not Detected (NotDetected); Respiratory Syncytial Virus Not Detected (NotDetected)
[2021-05-01 13:42] LABS: Hematocrit 46.7 % (37.0-47.0); Hemoglobin 15.6 g/dL (12.2-16.2); Lymphocytes % 32.3 % (10-50); Mean Corpuscular HGB Conc 33.5 g/dL (31.8-35.4); Mean Corpuscular Hemoglobin 32.2 pg (27.0-31.2); Mean Corpuscular Volume 96.1 fl (81-99); Mean Platelet Volume 8.2 fl (7.4-10.4); Monocytes % 5.1 % (1.7-9.3); Neutrophils % 60.1 % (37.0-80.0); Platelet Count 208 K/mm3 (142-424); Red Blood Count 4.87 M/mm3 (4.20-5.40); Red Cell Distribution Width 12.8 % (11.5-17.5); White Blood Count 5.2 K/mm3 (4.8-10.8)
[2021-05-01 13:43] LABS: Basophils % 1.2 % (0.1-2.0); Eosinophils # 0.1 K/mm3 (0.0-0.4); Eosinophils % 1.3 % (0.1-12.0); Lymphocytes # 1.7 K/mm3 (0.7-4.5); Monocytes # 0.3 K/mm3 (0.1-1.0); Neutrophils # 3.1 K/mm3 (1.8-7.8)
[2021-05-01 13:44] LABS: Basophils # 0.1 K/mm3 (0-0.2); Rhinovirus/Enterovirus Detected (NotDetected)
== END ==
LOC: COVID.OUT 11:14
PROVIDERS: Internal Medicine Cardiovascular Disease; PCP Family Medicine; Visit Provider Physician Assistant
DX: Z20.822 Contact with and (suspected) exposure to COVID-19 (principal); R06.00 Dyspnea, unspecified; R55 Syncope and collapse; I25.10 Atherosclerotic heart disease of native coronary artery without angina pectoris; I48.0 Paroxysmal atrial fibrillation; R00.1 Bradycardia, unspecified; R00.2 Palpitations; E78.2 Mixed hyperlipidemia; Z72.0 Tobacco use; B34.1 Enterovirus infection, unspecified
CPT/HCPCS: 36415; 71045; 80048; 85025; 87581; 87632; 87798; C9803; U0003; U0005

== ENCOUNTER 2022-01-29 07:37 | Day surgery (SDC) | payer OTHER, SELFPAY ==
--- NOTE | 2022-01-29 08:42 | ECG_ITS ---
APPROVED REPORT Exam: Resting ECG HR:49 bpm ECG Measurements Heart Rate 49 AXES RI 156 P 46 QRSd 126 QRS -61 QT 466 T 65 QTc 435 Conclusion SINUS BRADYCARDIA RIGHT BUNDLE BRANCH BLOCK [120+ ms QRS DURATION, UPRIGHT V1, 40+ ms S IN I/aVL/V4/V5/V6] LEFT ANTERIOR FASCICULAR BLOCK [QRS AXIS <= -45, QR IN I, RS IN II] ABNORMAL ECG UNCONFIRMED REPORT Electronically signed by : Cortes Hopkins MD 01/29/2022 19:59:39
--- NOTE | 2022-01-29 08:52 | SUR.PREOP ---
Patient brought to cathlab for cardioversion, vat washer showed sinus rythmn. 12 lead EKG obtained and showed sinus rhythm per dr dae lewis. Patient discharged at this time.
== END 2022-01-29 09:01 | disposition home or self-care (01) ==
LOC: CATHLAB 07:38
PROVIDERS: PCP Family Medicine; Visit Provider Internal Medicine Cardiovascular Disease
DX: I48.91 Unspecified atrial fibrillation (principal)
CPT/HCPCS: 93005

== ENCOUNTER 2022-02-18 11:31 | Emergency (ER) | payer OTHER, SELFPAY ==
[2022-02-18 11:32] VITALS: BP 173/84; PULSE 59; RESP 18; TEMP 36.6; O2SAT 95; BMI 28.7
--- NOTE | 2022-02-18 11:34 | XR_ITS ---
FINAL REPORT CLINICAL HISTORY: SOA, chest pressure, cough x 3-4 days. Hx emphysema, smoker. COMPARISON: 04/30/2021 FINDINGS: SINGLE-VIEW CHEST The heart size is normal. The mediastinum is normal. The lungs are clear. There is no pneumothorax. IMPRESSION: No acute cardiopulmonary process. Reviewed, Interpreted and Dictated by Nikunj River MD Transcribed by Irene Modi Authenticated and [facility]
--- NOTE | 2022-02-18 11:39 | ECG_ITS ---
APPROVED REPORT Exam: Resting ECG HR:51 bpm ECG Measurements Heart Rate 51 AXES UT 149 P 69 QRSd 120 QRS -62 QT 454 T 62 QTc 430 Conclusion SINUS BRADYCARDIA LEFT AXIS DEVIATION late R wave progression ABNORMAL ECG UNCONFIRMED REPORT Electronically signed by : Cortes Hopkins MD 02/18/2022 21:31:13
--- NOTE | 2022-02-18 11:42 | HMH.EDGENADL ---
Discharge Plan Disposition Patient Disposition: Home, Self-Care Condition: Good Chief Complaint: Shortness of Breath/Dyspnea Prescriptions Prescriptions: No Action aspirin [Adult Low Dose Aspirin] 81 mg tablet,delayed release (DR/EC) 81 mg PO DAILY Qty: 30 5RF sertraline [Zoloft] 50 mg tablet 50 mg PO DAILY cetirizine [Zyrtec] 10 mg tablet 10 mg PO DAILY coenzyme Q10 [Co Q-10] 100 mg capsule 100 mg PO DAILY Xarelto 20 mg tablet See Rx Instructions .ROUTE .COMPLEX Qty: 90 2RF Dose Instruction: TAKE ONE TABLET BY MOUTH EVERY NIGHT FOR BLOOD THINNER Rx Instructions: TAKE ONE TABLET BY MOUTH EVERY NIGHT FOR BLOOD THINNER rosuvastatin 20 mg tablet See Rx Instructions .ROUTE .COMPLEX Qty: 90 3RF Dose Instruction: TAKE 1 TABLET BY MOUTH ONCE DAILY Rx Instructions: TAKE 1 TABLET BY MOUTH ONCE DAILY diltiazem HCl 180 mg capsule,extended release 24hr See Rx Instructions .ROUTE .COMPLEX Qty: 90 1RF Dose Instruction: TAKE 1 CAPSULE BY MOUTH EVERY DAY FOR BLOOD PRESSURE - NEEDS FOLLOW UP APPOINTMENT FOR ADDITIONAL REFILLS Rx Instructions: TAKE 1 CAPSULE BY MOUTH EVERY DAY FOR BLOOD PRESSURE - NEEDS FOLLOW UP APPOINTMENT FOR ADDITIONAL REFILLS Referrals Follow up/Referrals: Nando Frank MD [Primary Care Provider] - See instructions Clinical Impressions Clinical Impression: Exertional dyspnea, Acute viral syndrome Instructions Patient Instructions: DI for Shortness of Breath, DI for Viral Syndrome Discharge ED Provider: Michael Miller General Adult HPI General Chief complaint: Shortness of Breath/Dyspnea Stated complaint: SOA Time Seen by Provider: 02/18/22 11:34 History of Present Illness HPI narrative: 56-year-old female with history of atrial fibrillation on Eliquis and diltiazem, does have history of hypertensive heart disease, coronary artery disease, tobacco use. She presents with approximately 3 days of shortness of breath, denies cough, sputum production, fever, leg swelling, orthopnea, PND, palpitations, chest pain. Symptoms seem slightly worse with exertion, she does state that after Thanksgiving she felt was totally wiped out with generalized fatigue. She is not aware of any sick contacts. No other treatments prior to this assessment Related Data Home Medications Medication Instructions Recorded Confirmed cetirizine 10 mg tablet (Zyrtec) 10 mg PO DAILY allergies 01/11/19 01/22/22 sertraline 50 mg tablet (Zoloft) 50 mg PO DAILY mood 01/11/19 01/22/22 coenzyme Q10 100 mg capsule (Co 100 mg PO DAILY 01/22/22 01/22/22 Q-10) Previous Rx's Medication Instructions Recorded aspirin 81 mg tablet,delayed 81 mg PO DAILY #30 tabs 12/05/20 release (Adult Low Dose Aspirin) rivaroxaban 20 mg tablet (Xarelto) See Rx Instructions .Route 04/30/21 .COMPLEX #90 tabs rosuvastatin 20 mg tablet See Rx Instructions .Route 01/29/22 .COMPLEX #90 tabs diltiazem HCl 180 mg See Rx Instructions .Route 02/15/22 capsule,extended release 24 hr .COMPLEX #90 caps Allergies Allergy/AdvReac Type Severity Reaction Status Date / Time No Known Allergies Allergy Verified 01/22/22 10:27 [facility] Disclaimer: The information contained in this section may have been updated after the patient was seen, as this information can be updated by other users. Medical History Edema Near syncope Social History Smoking Status: Current every day smoker tobacco type: cigarettes packs per day: 1 alcohol intake: never substance use type: marijuana current occupational status: employed Travel in the last 8 weeks: Inside the [place] household members: spouse housing: house caffeine: Yes ROS Obtained: Yes Systems reviewed as appropriate & no additional complaints except as documented Constitutional Constitutional: Repor
[2022-02-18 11:56] LABS: Coronavirus 19, PCR Not Detected (NotDetected); Influenza B, PCR Not Detected (NotDetected)
[2022-02-18 12:10] LABS: Chloride 105 mmol/L (98-107)
[2022-02-18 12:11] LABS: Potassium 3.4 mmoL/L (3.5-5.1); Sodium 142 mmol/L (136-145)
[2022-02-18 12:13] LABS: Alanine Aminotransferase 27 U/L (12-78); Albumin Level 4.3 g/dl (3.5-5.0); Alkaline Phosphatase 86 U/L (38-126); Aspartate Amino Transferase 37 U/L (14-36); Basophils # 0.1 K/mm3 (0-0.2); Basophils % 1.8 % (0.1-2.0); Bilirubin,Total 0.6 mg/dl (0.2-1.3); Blood Urea Nitrogen 14 mg/dl (7-17); Eosinophils % 0.5 % (0.1-12.0); Estimated Glomerular Filt Rate 74 ml/min (>60); GFR (African American) 89 ML/MIN (>60); Hematocrit 50.5 % (37.0-47.0); Lymphocytes # 1.3 K/mm3 (0.7-4.5); Lymphocytes % 34.2 % (10-50); Mean Corpuscular HGB Conc 31.7 g/dL (31.8-35.4); Mean Corpuscular Hemoglobin 31.8 pg (27.0-31.2); Mean Corpuscular Volume 100.1 fl (81-99); Mean Platelet Volume 8.7 fl (7.4-10.4); Monocytes # 0.2 K/mm3 (0.1-1.0); Monocytes % 4.4 % (1.7-9.3); Neutrophils # 2.3 K/mm3 (1.8-7.8); Neutrophils % 59.1 % (37.0-80.0); Platelet Count 154 K/mm3 (142-424); Red Blood Count 5.05 M/mm3 (4.20-5.40); Red Cell Distribution Width 13.1 % (11.5-17.5); White Blood Count 3.8 K/mm3 (4.8-10.8)
[2022-02-18 12:14] LABS: Albumin/Globulin Ratio 1.4 (1.1-1.8); Anion Gap 8.4 mEq/L (5-15); Calcium 9.4 mg/dl (8.4-10.2); Carbon Dioxide 32 mmol/L (22.0-30.0); Glucose 92 mg/dl (74-100); Total Protein,Serum 7.3 g/dl (6.3-8.2)
[2022-02-18 12:23] LABS: NT Pro Brain Natriuretic Pep. 301 pg/mL (0-125)
[2022-02-18 12:32] LABS: Troponin I < 0.01 ng/ml (0.00-0.034)
[2022-02-18 12:46] VITALS: BP 131/74; PULSE 48; RESP 18; O2SAT 93
[2022-02-18 12:56] LABS: Influenza A, PCR Detected (NotDetected)
[2022-02-18 13:22] VITALS: BP 116/59; PULSE 54; RESP 18; TEMP 36.6; O2SAT 95
== END 2022-02-18 13:25 | disposition home or self-care (01) ==
PROVIDERS: Emergency Provider Emergency Medicine; PCP Family Medicine
DX: J10.1 Influenza due to other identified influenza virus with other respiratory manifestations (principal); Z79.899 Other long term (current) drug therapy
CPT/HCPCS: 71045; 80053; 83880; 84484; 85025; 93005; 99285; C9803; U0003; U0005

== ENCOUNTER 2022-05-07 06:16 | Day surgery (SDC) | payer OTHER, SELFPAY ==
[2022-05-03 14:43] VITALS: BMI 29.2
[2022-05-07 06:44] VITALS: BP 122/46; PULSE 54; RESP 20; TEMP 36.3; O2SAT 99
--- NOTE | 2022-05-07 07:30 | P.PN_ITS ---
[facility] Disclaimer: The information contained in this section may have been updated after the patient was seen, as this information can be updated by other users. Medical History Edema Emphysema/COPD Near syncope Skin cancer Surgical History History of colonoscopy Hx of tubal ligation Family History Other Family history of cancer Social History Smoking Status: Current every day smoker tobacco type: cigarettes packs per day: 1 alcohol intake: current substance use type: marijuana current occupational status: employed Travel in the last 8 weeks: [place] the [place] household members: spouse housing: house caffeine: Yes [facility] Anesthesia Checklist Patient Identification Patient Identification: Arm Band Structural Data Admitted From: Home Planned Operative Procedure/s: colonoscopy Consent for Planned Operative Procedure(s) Verified: Yes Verified Documents: Surgical Consent and History and Physical NPO Status Verified Time NPO: 00:00 Additional verifications Anesthesia Reactions: No Airway Assessment C-Spine Mobility Assessed: Yes TMJ Mobility Assessed: Yes Dentition: Good Dentition Neurological Assessment Level of Consciousness: Awake and Alert Anesthesia Plan Anesthesia Risk discussed: Yes Anesthesia Plan: Verified ASA Class: III Anesthesia Type: MAC
[2022-05-07 07:31] VITALS: O2SAT 99
[2022-05-07 08:50] VITALS: BP 111/56; PULSE 51; RESP 16; TEMP 36.6; O2SAT 100
--- NOTE | 2022-05-07 08:50 | HMH.SCOPE ---
Procedure: Date: 05/07/22 Patient Date of :: 1965 Procedure Performed:: Total colonoscopy to terminal ileum with multiple polypectomy using snare and biopsy forceps Indications:: Patient is a 56-year-old female. She has a family history of colon cancer in her father. She has a personal history of adenomatous polyps. There is a personal history of apparent perineal (? Anal carcinoma). She had a colonoscopy in [address] Crandall and had a couple of polyps removed, one tubular adenoma and 1 hyperplastic polyp. Last colonoscopy was with Dr. Nate Crandall on 03/02/2019. She had 4 polyps removed, largest was 14 mm in the cecum which appeared to be flat and sessile, likely serrated adenoma. Recommendation was for follow-up colonoscopy in 3 years. Performing Provider:: Ha Taylor MD Referring Provider:: Nando Frank MD Sedation:: MAC sedation Procedure:: Patient history was obtained and appropriate physical examination was performed. Patient's medications and allergies were reviewed. Informed consent was obtained after explaining the benefits, alternatives, and risks of the procedure including, but not limited to, bleeding, perforation, missed lesions, and adverse reaction to anesthesia medications. Patient was transported to endoscopy procedure room. Patient was connected to monitoring devices. Throughout the procedure the patient's blood pressure, pulse, and oxygen saturations were monitored continuously. Patient identification and planned procedure were verified by the staff. Patient was positioned in lateral decubitus position. Digital anorectal exam was performed. Variable stiffness Olympus colonoscope was inserted and advanced under direct visualization to the cecum. Adequacy of the colonic preparation was noted. The colonoscope was advanced a short distance into the terminal ileum. The colonoscope was then slowly withdrawn while carefully examining the color, texture, anatomy, and integrity of the mucosoa circumferentially. Within the rectum retroflexion was performed. Colonoscope was then withdrawn. Findings:: Colonoscope was advanced to the cecum. Is advanced a short distance into the terminal ileum which was grossly normal. Within the ascending colon there was a irregular very flat sessile polyp measuring about 12 to 14 mm. This may be recurrent serrated adenoma. Eleview was injected submucosally in an attempt to delineate and raised this polyp. It was then removed in a piecemeal fashion using hot snare along with cold biopsy forceps. At the completion the area was marked with Aruna ink. In the descending colon there was a small polyp removed with snare. In the sigmoid colon there was a polyp removed with biopsy forceps. The rectosigmoid region there were several hyperplastic appearing polyps. At this point the patient did have some significant spasticity and contraction of the colon and significant abdominal breathing. This made surveillance somewhat difficult. Some of the larger hyperplastic appearing rectosigmoid polyps were removed with biopsy forceps. Retroflexion within the rectum revealed no evidence of any pathologic hemorrhoids or evidence of anal recurrence. She had a few sigmoid diverticuli. Impression: Polyps as noted above. Most apparent was a large irregular sessile polyp measuring about 12 to 14 mm in the ascending colon which was marked with Aruna ink after piecemeal removal. Rare sigmoid diverticuli Recommendations:: Recommend repeat colonoscopy in 1 to 2 years pending pathology due to the potential for recurrent polyp in the ascending colon and to ensure complete removal. Complications:: None immediately apparent Estimated blood obtained (mL): 3
[2022-05-07 09:00] VITALS: BP 110/62; PULSE 52; RESP 16; O2SAT 100
[2022-05-07 09:10] VITALS: BP 105/66; PULSE 54; RESP 16; O2SAT 95
[2022-05-07 09:20] VITALS: BP 136/74; PULSE 56; RESP 16; O2SAT 98
== END 2022-05-07 09:30 | disposition home or self-care (01) ==
PROVIDERS: PCP Family Medicine; Visit Provider Surgery
PROC: 0DJD8ZZ Inspection of Lower Intestinal Tract, Via Natural or Artificial Opening Endoscopic (ICD-10-PCS; CPT 45378; principal; 2022-05-07 07:30)
DX: Z12.11 Encounter for screening for malignant neoplasm of colon (principal); D12.4 Benign neoplasm of descending colon; D12.2 Benign neoplasm of ascending colon; Z86.010 Personal history of colon polyps; F17.210 Nicotine dependence, cigarettes, uncomplicated; Z79.899 Other long term (current) drug therapy; Z80.0 Family history of malignant neoplasm of digestive organs
CPT/HCPCS: 45380; 45385; J2704

== ENCOUNTER → 2022-11-10 08:12 | Outpatient (CLI) | payer BC, SELFPAY ==
--- NOTE | 2022-11-10 08:17 | XR_ITS ---
FINAL REPORT TECHNIQUE: Bone densitometry calculations of the lumbar spine and left hip were obtained. CLINICAL HISTORY: POST MENOPAUSAL FINDINGS: Using L1-4, the bone mineral density of the spine is 0.921 g/cm2, corresponding to T-score of -1.1. Using the left hip, the bone mineral density of the femoral neck is 0.749 g/cm2, corresponding to a T-score of -1.6. Using the right hip, the bone mineral density of the femoral neck is 0.684 g/cm2, corresponding to a T-score of -1.5. NOTE: T-score: Standard deviation compared with peak bone mass of young adult mean. *Following the recommendations of the International Society of Bone densitometry, classification of hip BMD is based on the lower of two T-scores; total hip or femoral neck. IMPRESSION: Diminished bone mineral density of the lumbar spine and both hips consistent with osteopenia. Reviewed, Interpreted and Dictated by Nikunj River MD Transcribed by Irene Modi Authenticated and [facility]
--- NOTE | 2022-11-10 08:17 | CT_ITS ---
FINAL REPORT TECHNIQUE: Axial images were obtained from the lung apex to the mid abdomen by computed tomography. This study was performed with techniques to keep radiation doses as low as reasonably achievable (ALARA). Individualized dose reduction techniques using automated exposure control or adjustment of mA and/or kV according to the patient's size were employed. CLINICAL HISTORY: H/O TOBACCO USE smokes 1 pk per day x 40 yrs empysema COMPARISON: 04/14/2021 FINDINGS: CHEST CT LOW DOSE CTDI vol (mGy): 2.90 DLP (mGy-cm): 103.42 There is mild right paratracheal adenopathy which is stable. There is a calcified subcarinal lymph node. The heart is normal in size. There is no pericardial or pleural effusion. Lung window images demonstrate no suspicious infiltrate or nodule. There are advanced changes of centrilobular emphysema. Limited images of the upper abdomen are unremarkable. IMPRESSION: Advanced changes of centrilobular emphysema. Lung RADS category 1S. Recommend 12 month follow-up low-dose chest CT. Reviewed, Interpreted and Dictated by Nikunj River MD Transcribed by Irene Modi Authenticated and [facility]
== END ==
PROVIDERS: PCP Family Medicine; Visit Provider Family Medicine
DX: Z87.891 Personal history of nicotine dependence (principal); Z12.2 Encounter for screening for malignant neoplasm of respiratory organs; Z78.0 Asymptomatic menopausal state; Z13.820 Encounter for screening for osteoporosis
CPT/HCPCS: 71271; 77080

== ENCOUNTER 2024-02-13 06:23 | Outpatient (CLI) | payer OTHER, SELFPAY ==
--- NOTE | 2024-02-13 | CA_ITS ---
APPROVED REPORT Exam: Pharmacologic Technologist: Joycelyn Ortiz Ht: 5 ft 10 in Wt: 196 lbs BSA: 2.07 m2 HR: 48 bpm BP: 129/58 mmHg Stress Test Details Test: Lexiscan HR Resting HR: 48 bpm Max Heart Rate (APMHR): 161.891204 bpm Max HR Achieved: 93 bpm Target HR (85% APMHR): 136.637856 bpm % of APMHR: 57.76 Recovery HR: 75 bpm BP Resting BP: 129.0/58.0 mmHg Max BP: 161.0/69.0 mmHg Recovery BP: 111.0/61.0 mmHg ECG Resting ECG: Sinus rhythm, 54 Stress ECG Conclusion Patient very short of breath - requested to stop. Will change to Lexiscan Symptoms: None Arrhythmias/Ectopy: Sinus Rhythm ST-T Changes: None Electronically signed by : Lashae Roman MD 02/14/2024 11:40:21
--- NOTE | 2024-02-13 06:34 | NM_ITS ---
APPROVED REPORT Exam: Nuclear Stress Test Indication: Chest pain, High cholesterol, Tobacco use, Family history, Abnormal EKG, CAD Patient Location: Outpatient Stress Tech: Joycelny Ortiz DC Tech:Gayathri Bryant, ARRT, RT (R)(N) Ht: 5 ft 10 in Wt: 196 lbs Bra Size: 38C HR: 54 bpm BP: 129/58 mmHg BSA: 2.07 m2 TID: 1.19 BMI: 28.1 History: Chest pain, High cholesterol, Tobacco use, Family history, Abnormal EKG, CAD Procedure: Patient received 0.4 mg of intravenous Lexiscan, resting heart rate 54 bpm, resting blood pressure 129/58 mmHg, with Lexiscan maximum heart rate achieved was 87 bpm which is % of the maximum predicted heart rate and blood pressure was 131/69 mmHg. With Lexiscan, patient denied any complaint of chest pain. Cardiac Stress and Resting SPECT Images: Cardiac Stress and Resting SPECT images were obtained using technetium 99m Myoview 29.0 mCi stress and 10.30 mCi at rest. Technically difficult study due to significant soft tissue overlap with the cardiac borders. This may affect the diagnostic interpretation of the study findings. Resting and stress imaging in supine and prone positions demonstrate a large sized, moderate, partially reversible perfusion defect in the inferior and inferoseptal LV mandel. Gated imaging demonstrates normal global and regional LV systolic function. LVEF is calculated 60%. Conclusion: Technically difficult study. Large sized, moderate, partially reversible perfusion defect in the inferior and inferoseptal LV mandel. Findings are suggestive of partial reversible ischemia. Gated imaging demonstrates normal global and regional LV systolic function. LVEF is calculated 60%. In the setting of technically difficult study and possible abnormal findings, further evaluation noninvasively with CCTA suggested prior to proceeding with invasive coronary angiography. Electronically signed by : Lashae Roman MD 02/14/2024 11:43:00
[2024-02-13] MEDS: ISOTOPE MYOVIEW (PER STUDY) 1 DOSE IV (08:45)
[2024-02-13] MEDS: SODIUM CHLORIDE 0.9% 10ML SYR (RAD ONLY) 10 ML IV ×2 (08:45)
[2024-02-13] MEDS: REGADENOSON 0.4MG/5ML SYRINGE 0.4 MG IV (08:45)
== END 2024-02-13 23:59 | disposition home or self-care (01) ==
PROVIDERS: PCP Family Medicine; Visit Provider Physician Assistant
DX: I25.118 Atherosclerotic heart disease of native coronary artery with other forms of angina pectoris (principal)
CPT/HCPCS: 78452; 93017; 93018; A9502; J2785

== ENCOUNTER 2024-04-02 07:39 | Day surgery (SDC) | payer OTHER, SELFPAY ==
[2024-04-02] VITALS (13 sets, daily range): BP systolic 76–135; BP diastolic 42–86; PULSE 47–58; RESP 18–20; TEMP 36.1; O2SAT 90–100; BMI 28.1
--- NOTE | 2024-04-02 07:54 | IR_ITS ---
APPROVED REPORT Patient Location: Outpatient [place] Master: ASHWIN Haynes RT (R) PROCEDURES Selective coronary angiogram INDICATION Abnormal Myoview, Preoperative evaluation Informed consent was obtained prior to the procedure. COMPLICATIONS None Estimated Blood Loss: Less than 10 mls TECHNIQUE One percent lidocaine used to anesthetize the right anterior aspect of the wrist. The right radial artery was accessed via the Seldinger technique. A long 25 cm hydrophilic 6 Portuguese sheath was placed in the right radial artery. 2.5 mg of Verapamil, 800 mcg of nitroglycerin, 1mg Lidocaine and 5000 U Heparin were given through the arterial sheath. Patient experienced vasovagal episode which responded nicely to 1 mg of IV atropine the 6 Portuguese JL 3 guide catheter selective coronary angiogram. At the end of the procedure the sheath was removed good hemostasis was achieved using Traclet band, patient was transferred to the postop holding area in stable condition. ANGIOGRAPHIC RESULTS The left main artery Normal The left anterior descending artery Normal The circumflex artery Normal The right coronary artery Dominant normal The FORTE ventriculogram reveals Not performed The left ventricular end-diastolic pressure Not measured IMPRESSION Normal coronary arteries PLAN 1. Medical management Electronically signed by : Meet Guerra MD 04/02/2024 10:12:37
[2024-04-02 08:27] LABS: Basophils % 0.8 % (0.1-2.0); Eosinophils # 0.1 K/mm3 (0.0-0.4); Eosinophils % 2.6 % (0.1-12.0); Hematocrit 47.1 % (37.0-47.0); Hemoglobin 16.1 g/dL (12.2-16.2); Lymphocytes # 1.5 K/mm3 (0.7-4.5); Lymphocytes % 29.3 % (10-50); Mean Corpuscular HGB Conc 34.2 g/dL (31.8-35.4); Mean Corpuscular Hemoglobin 31.8 pg (27.0-31.2); Mean Corpuscular Volume 93.1 fl (81-99); Mean Platelet Volume 9.1 fl (7.4-10.4); Monocytes # 0.3 K/mm3 (0.1-1.0); Monocytes % 6.5 % (1.7-9.3); Neutrophils # 3.1 K/mm3 (1.8-7.8); Neutrophils % 60.6 % (37.0-80.0); Platelet Count 176 K/mm3 (142-424); Red Blood Count 5.06 M/mm3 (4.20-5.40); Red Cell Distribution Width 11.9 % (11.5-17.5); White Blood Count 5.1 K/mm3 (4.8-10.8)
[2024-04-02 08:39] LABS: Blood Urea Nitrogen 14 mg/dl (7-17); Calcium 9.5 mg/dl (8.4-10.2); Carbon Dioxide 30 mmol/L (22.0-30.0); Chloride 104 mmol/L (98-107); Creatinine Clearance Estimated 85 mL/min (50-200); Estimated Glomerular Filt Rate 57 ml/min (>60); GFR (African American) 69 ML/MIN (>60); Glucose 96 mg/dl (74-100); Sodium 138 mmol/L (136-145)
[2024-04-02 08:44] LABS: Anion Gap 7.9 mEq/L (5-15); Potassium 3.9 mmoL/L (3.5-5.1)
[2024-04-02] MEDS: diphenhydrAMINE 50MG/ML VIAL 50 MG IV (09:25)
[2024-04-02] MEDS: HEPARIN 1,000 UNITS/500ML NS (CATH LAB) 3000 UNIT IV (09:26)
[2024-04-02] MEDS: LIDOCAINE 1% 10ML MDV 20 ML IJ (09:26)
[2024-04-02] MEDS: VERAPAMIL 2.5MG/ML 2ML VIAL 2.5 MG IV (09:27)
[2024-04-02] MEDS: HEPARIN 1,000 UNITS/ML 10ML VIAL (CATH LAB) 10000 UNIT IV (09:27)
[2024-04-02] MEDS: NITROGLYCERIN 800MCG/8ML SYR (CATH LAB) 800 MCG IA (09:27)
[2024-04-02] MEDS: 0.9 % SODIUM CHLORIDE 500 ML 25 ML IV (09:27)
[2024-04-02] MEDS: FENTANYL 100MCG/2ML VIAL 50 MCG IV (10:05)
[2024-04-02] MEDS: MIDAZOLAM HCL 1MG/ML 5ML VIAL 1 MG IV (10:05)
[2024-04-02] MEDS: ATROPINE 1MG/10ML SYRINGE (CRASH CART) 1 MG IV (10:10)
[2024-04-02] MEDS: IOPAMIDOL-370 (76%);100ML BOTTLE 50 ML IV (12:06)
== END 2024-04-02 13:11 | disposition home or self-care (01) ==
PROVIDERS: PCP Family Medicine; Visit Provider Internal Medicine
DX: I25.118 Atherosclerotic heart disease of native coronary artery with other forms of angina pectoris (principal); I11.9 Hypertensive heart disease without heart failure; I48.19 Other persistent atrial fibrillation; F17.210 Nicotine dependence, cigarettes, uncomplicated; R55 Syncope and collapse; Z79.899 Other long term (current) drug therapy
CPT/HCPCS: 80048; 85025; 93454; 99152; C1725; C1769; J0461; J1200; J1644; J2250; J3010; Q9967

== ENCOUNTER 2024-06-07 09:17 | Outpatient (CLI) | payer OTHER, SELFPAY ==
--- NOTE | 2024-06-07 09:18 | CT_ITS ---
FINAL REPORT CLINICAL HISTORY: lung cancer screening SMOKES 1 PK PER DAY X 40 YRS EMPYSEMA, HX OF MELANOMA COMPARISON: 11/10/2022 FINDINGS: CT CHEST LOW DOSE SCREENING DOSE: CTDI vol: 2.90 mGy, DLP: 108.12 mGy*cm TECHNIQUE: Axial CT without IV contrast administration using low dose protocol. This study was performed with techniques to keep radiation doses as low as reasonably achievable, (ALARA). Individualized dose reduction techniques using automated exposure control or adjustment of mA and/or kV according to the patient's size were employed. No acute lung disease is present. No pulmonary lesions are seen suspicious for neoplasm. There are moderate changes of emphysema. There is evidence of old granulomatous disease. No pleural or pericardial effusion is seen. No adenopathy or mass lesion is present. IMPRESSION: No evidence of lung cancer LUNG RADS CATEGORY 1 RECOMMENDATION: 12 month LDCT follow up Reviewed, Interpreted and Dictated by Torie Patterson MD Transcribed by Irene Modi Authenticated and [facility]
[2024-06-07] MEDS: ALBUTEROL 0.083% 2.5 MG/3 ML NEB IH (14:38)
== END 2024-06-07 23:59 | disposition home or self-care (01) ==
LOC: RAD 09:18
PROVIDERS: PCP Family Medicine; Visit Provider Internal Medicine Pulmonary Disease
DX: R06.09 Other forms of dyspnea (principal); F17.210 Nicotine dependence, cigarettes, uncomplicated
CPT/HCPCS: 71271; 94060; 94618; 94726; 94729; J7613

== ENCOUNTER 2024-08-06 07:50 | Day surgery (SDC) | payer OTHER, SELFPAY ==
[2024-08-03 14:42] VITALS: BMI 29.4
[2024-08-06 08:21] VITALS: BP 146/91; PULSE 55; RESP 20; TEMP 36.2; O2SAT 98
--- NOTE | 2024-08-06 09:09 | P.HP_ITS ---
History of Present Illness *Admission Date: 08/06/24 *Reason for visit:: Personal history of adenomatous colon polyps *History of present illness: Mrs. Feliciano is a 58-year-old female who is here for surveillance colonoscopy secondary to a personal history of adenomatous colon polyps. The examination is deemed medically necessary for surveillance colonoscopy. The patient has been seen, interviewed and examined prior to the procedure by both myself and the anesthesia provider. [facility] Disclaimer: The information contained in this section may have been updated after the patient was seen, as this information can be updated by other users. Medical History Encounter for screening for malignant neoplasm of lung Smoking greater than 30 pack years Tobacco use Hyperlipidemia A-fib HHD (hypertensive heart disease) CAD (coronary artery disease) Pre-operative cardiovascular examination Bradycardia Skin cancer Near syncope Edema Surgical History History of cardiac cath Hx of tubal ligation History of colonoscopy Family History Other Family history of cancer Social History Smoking Status: Current every day smoker tobacco type: cigarettes packs per da y: 1 alcohol intake: current alcohol intake frequency: a few times a week substance use type: marijuana current occupational status: employed Travel in the last 8 weeks?: None household members: spouse housing: house caffeine: Yes Have you lived/traveled outside [place] in past 30 days?: No Contact w/someone who lives/traveled outside US past 30 days?: No Exposure to someone with infectious disease in past 14 days?: No Do you have a fever (greater than 100.4 F or 38 C)?: No Have you tested positive for COVID-19?: No Exposed to someone with COVID-19 in past 14 days?: No Do you have a sore throat?: No Do you have a cough?: No Do you have any weakness?: No Do you have any diarrhea?: No Are you experiencing any unusual bleeding?: No Do you have any muscle aches/pain?: No Do you have any abdominal pain?: No Are you experiencing loss of taste or smell?: No Other Medical History Have you received the Flu Vaccine for this season: Yes Have you received the Pneumonia Vaccine: No Review of Systems Review of Systems Review of systems (narrative): Negative *Cardiovascular Comments: Negative *Gastrointestinal Comments: Negative *Genitourinary Comments: Negative *Musculoskeletal Comments: Negative *Neurologic Comments: Negative Meds Home Medications and Allergies Home Medications ?Medication ?Instructions ?Recorded ?Confirmed ?Type sertraline 50 mg tablet (Zoloft) 50 mg PO DAILY mood 01/11/19 08/03/24 History coenzyme Q10 100 mg capsule (Co 100 mg PO DAILY Supplement 01/22/22 08/03/24 History Q-10) rosuvastatin 20 mg tablet See Rx Instructions .Route 05/03/22 08/03/24 History .COMPLEX Cholesterol apixaban 5 mg tablet (Eliquis) 5 mg PO BID 90 days #180 tabs 08/23/23 08/03/24 Rx calcium citrate 200 mg PO BID 08/23/23 08/03/24 History diltiazem HCl 180 mg See Rx Instructions .Route 08/23/23 08/03/24 Rx capsule,extended release 24 hr .COMPLEX #90 caps albuterol sulfate 90 mcg/actuation 2 inh inhalation QID PRN shortness 06/07/24 08/03/24 Rx aerosol inhaler of breath or wheezing 90 days #8.5 grams montelukast 10 mg tablet 10 mg PO QPM 90 days #90 tabs 06/07/24 08/03/24 Rx sodium sul 1.479 gram-potas ch See Rx Instructions PO PER PKG DIR 07/23/24 08/03/24 Rx 0.188 gram-magnes sul 0.225 gram colonscopy #24 tabs tablet (Sutab) tiotropium 2.5 mcg-olodaterol 2.5 2 puff inhalation DAILY 90 days #4 07/23/24 08/03/24 Rx mcg/actuation mist for inhalation grams (Stiolto Respimat) New Prescriptions to Start Prescriptions: Allergies Allergy/AdvReac Type Severity Reaction Status Date / Time No Known Allergies Allergy Verified 08/03/24 14:35 Exam Data for Last 24 hours Vital signs and Labs for Last 24 Hours: Temp Pulse Resp BP Pulse Ox O2 Del Method 97.2 F L 55 L 20 146/91 H 98 Room Air 08/06/24 08:21 08/06/24 08:21 08/06/24 08:21 08/06/24 08:21 08/06/24 08:21 08/06/24 08:21 I & O for Last 24 hours: Intake & Output 08/03/24 08/04/24 08/05/24 08/06/24 23:59 23:59 23:59 23:59 Weight 205 lb *Routine HEENT Exam Head: Present normocephalic Eye: Present EOMI and PERRL ENT: Present mucous membranes moist *Routine Neck Exam Neck: Present supple *Routine Respiratory Exam Respiratory: Present CTA bilaterally *Routine Cardiovascular Exam Cardiovascular: Present RRR *Routine Abdominal Exam Abdominal: Present soft and normoactive bowel sounds; Absent tenderness *Routine Rectal Exam Rectal:: deferred *Routine Genitalia Exam Genitalia:: deferred *Routine Extremities Exam Extremities: Absent cyanosis, clubbing or edema *Routine Skin Exam Skin: Present warm; Absent rash *Routine Neurological Exam Neurological: Present alert and oriented X3 Assessment and Plan *Assessment and plan (1) Personal history of adenomatous and serrated colon polyps: Status: Acute Category: Medical Code(s): Z86.0101 - Personal history of adenomatous and serrated colon polyps Plan A/P: 1. Personal history of adenomatous colon polyps is the preprocedural diagnosis. The patient will be anesthetized/sedated using MAC sedation. The patient has been seen and examined. Cardiac and lung assessment prior to the examination is stable. Proceed with planned surveillance colonoscopy.
--- NOTE | 2024-08-06 09:11 | P.PCN_ITS ---
[facility] Procedure Note Date: 08/06/24 Time: 09:40 Procedure Note:: Colonoscopy Procedure Report: Colonoscopy with cold snare polypectomy and TTS balloon dilation Endoscopist: Nate Crandall II, MD Referring physician: Nando Frank MD Date of Procedure: August 06, 2024 Equipment: Olympus 190 variable stiffness pediatric colonoscope Sedation: MAC sedation Indication: Mrs. Feliciano is a 58-year-old female who is here for follow-up surveillance colonoscopy. Her father had colon cancer in his early 60s. The patient did have anal cell cancer in March 2015. She did have surgical resection. In March 2015, she had 2 polyps (tubular adenoma x 1/hyperplastic polyp x 1) which were removed. Her colonoscopy with me in February 2019 revealed 4 polyps (14 mm serrated adenoma x 1, small tubular adenomas x 2 and hyperplastic polyp x 1). Her colonoscopy in April 2022 (Ha Taylor) revealed 5 polyps (small serrated adenoma x 1, tubular adenoma x 1 and hyperplastic polyps x 3) which were removed. The patient reports no abdominal pain, weight loss, change in her bowel habits or rectal bleeding. Procedure: Prior to the procedure, a history and physical exam was performed, and patient's medications and allergies were reviewed. The risks, benefits and alternatives of the sedation and procedure were discussed with the patient. All questions were answered and informed consent was obtained. The patient was brought to the procedure room. Patient identification and proposed procedure were verified by the physician and the nurse. The patient was placed in a left lateral decubitus position and the scope was passed under direct vision. Throughout the procedure, the patient's blood pressure, pulse, and oxygen saturations were monitored continuously. The colonoscopy was accomplished without difficulty. The patient tolerated the procedure well. Findings: On digital rectal examination there was normal rectal tone. There were no external hemorrhoids. The colonoscope was introduced through the anal canal to the rectum and advanced to the cecum. The ileocecal valve and appendiceal orifice were identified. The scope was advanced a short distance into the ileum which appeared grossly normal. The scope was then withdrawn into the colon. There were 2 polyps (ascending x 2 (4 and 7 mm)) and both were removed via cold snare polypectomy. There was a benign-appearing colonic stricture in the proximal transverse colon. On advancement of the scope to the cecum, the colonoscope could not advance through this and it was approximately 8 mm in diameter. This was dilated to 18 mm with a wire-guided TTS hydrostatic balloon. Upon further withdrawal, there were scattered diverticuli throughout the descending and sigmoid colon (LEFT colon). The rectum itself was normal. Upon retroflexion within the rectum there were grade 1 internal hemorrhoids. The preparation was excellent throughout with [place] Preparation Score of 9. The cecal time was 14 minutes. Impression: 1. Ascending colonic polyps x 2 (4 and 7 mm) 2. Proximal transverse colon stricture (benign and possibly related to NSAIDs or prior ischemic colitis) 3. Left-sided diverticulosis 4. Grade 1 internal hemorrhoids Plan: I will follow-up the polyp histology and recommend repeat surveillance co lonoscopy again in 5 years. I will inquire about use of NSAIDs or any prior colitis. I would encourage psyllium bulking fiber supplementation on a maintenance basis.
[2024-08-06 09:12] VITALS: O2SAT 98
[2024-08-06 09:47] VITALS: BP 124/73; PULSE 66; RESP 18; TEMP 36.1; O2SAT 95
[2024-08-06 09:57] VITALS: BP 127/77; PULSE 56; RESP 18; O2SAT 97
[2024-08-06 10:07] VITALS: BP 133/79; PULSE 56; RESP 18; O2SAT 97
[2024-08-06 10:17] VITALS: BP 138/76; PULSE 61; RESP 18; O2SAT 97
== END 2024-08-06 10:25 | disposition home or self-care (01) ==
PROVIDERS: PCP Family Medicine; Visit Provider Internal Medicine Gastroenterology
PROC: 0DJD8ZZ Inspection of Lower Intestinal Tract, Via Natural or Artificial Opening Endoscopic (ICD-10-PCS; CPT 45378; principal; 2024-08-06 09:30)
DX: Z12.11 Encounter for screening for malignant neoplasm of colon (principal); Z86.0101 Personal history of adenomatous and serrated colon polyps; Z85.048 Personal history of other malignant neoplasm of rectum, rectosigmoid junction, and anus; Z80.0 Family history of malignant neoplasm of digestive organs; D12.2 Benign neoplasm of ascending colon; K56.699 Other intestinal obstruction unspecified as to partial versus complete obstruction; K57.30 Diverticulosis of large intestine without perforation or abscess without bleeding; K64.0 First degree hemorrhoids; Z72.0 Tobacco use
CPT/HCPCS: 45385; 45386; C1726